=== PATIENT | male | born 1980 | race Caucasian/White ===

== ENCOUNTER 2019-07-22 11:46 | Emergency (ER) | payer OTHER ==
[2019-07-22 12:00] VITALS: TEMP 98.9
[2019-07-22] MEDS ORDERED: SODIUM CHLORIDE 0.9% (FLUSH) 10 ML SYG IV PRN (12:35)
[2019-07-22] MEDS ORDERED: SODIUM CHLORIDE 0.9% 1000ML 1,000 ML IVS ONE (12:36)
--- NOTE | 2019-07-22 12:36 | ED.PDOC ---
History of Present Illness - General Chief Complaint: General Stated Complaint: NEEDS MEDICALLY CLEARED PER POLICE Time Seen by Provider: 07/22/19 12:35 Source: patient, police - History of Present Illness Initial Comments: 38 yo male with PMH of substance abuse who is bib law enforcement for cc of need for medical clearance for psychiatric evaluation. Pt provides little history. Reports he was arrested this morning and does not know why. States the police tackled him to the ground and handcuffed him. Reports new L shoulder pain after being tackled, located to lateral shoulder, worse with palpation and movement, throbbing, moderate severity, nothing taken for relief. He denies any thoughts or attempts of harming himself or others. PD at bedside reports a warrant was issued for his arrest because family had reported him to make statements that he wanted to jump off a bridge. He has also been making delusional statements and saying he wants to his children. He has also been messaging a 15 year old girl on Facebook. Pt declined to comment on these issues. Denies any other pain or acute sx's. Reports drinking beer this morning but declined to say how much. Denies any other drug usage. Allergies/Adverse Reactions: Allergies NO KNOWN ALLERGY Allergy (Verified 07/22/19 12:00) Home Medications: Ambulatory Orders NK 07/22/19 Review of Systems - Review of Systems Review of Systems: 07/22/19 13:39 as per HPI All other Systems: Reviewed and Negative Past Medical History (General) - Patient Medical History Hx Seizures: No Hx Asthma: No Hx Hypertension: No Hx Diabetes: No Hx Cancer: No Hx Hepatitis C: No Surgical History: no surgical history - Vaccination History Hx Tetanus, Diphtheria Vaccination: No - UNKNOWN Hx Influenza Vaccination: No Hx Pneumococcal Vaccination: No Immunizations Up to Date: No - Social History Hx Tobacco Use: No Hx Alcohol Use: Yes - REGULAR BASIS Hx Substance Use: No Hx Substance Use Treatment: No Hx Depression: No Feels Threatened In Home Enviroment: No Feels Threatened In a Relationship: No - Female History Patient is a Female of Child Bearing Age (10 -59 yrs old): No Family Medical History - Family History Mother Family History: Unknown Living Status: Unknown Physical Exam - Physical Exam General Appearance: Alert, No apparent distress Eye Exam: bilateral other - mild periorbital bruising to left eye Ears, Nose, Throat: hearing grossly normal, normal ENT inspection, normal pharynx Neck: non-tender, full range of motion, supple, normal inspection Respiratory: lungs clear, normal breath sounds, no respiratory distress, no accessory muscle use Cardiovascular/Chest: normal peripheral pulses, no edema, no gallop, no JVD, no murmur, tachycardia Peripheral Pulses: radial,right: 2+, radial,left: 2+ Gastrointestinal/Abdominal: non tender, soft Back Exam: normal inspection, no CVA tenderness, no vertebral tenderness Extremity: other - moderate L lateral shoulder ttp w/o bruising/swelling/deformity, moderate reduced ROM bonny abduction due to pain, strength & sensation normal throughout 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 Consider also frx vs dislocation. -pt declines any XR imaging of L shoulder 07/22/19 15:16 -Labs reveal positive cannabinoids but no other drugs detected on UDS. Pt has slightly elevated blood alcohol level. His CPK is mildly elevated to 498 - likely mild dehydration from alcohol usage and struggling with police this morning. He refused any IV placement or fluids in the ED. Advised PO rehydration. Remainder of labwork unremarkable. His vitals have remained stable, tachycardia resolved. -Discussed all findings with pt. Discussed dx of acute left shoulder pain - contusion vs strain/sprain vs rotator cuff injury. Advised ROM exercises, OTC analgesics, outpatient f/u. Also advised cessation of drug use. -dc to police custody - to be brought to behavioral health facility for evaluation per police, return warnings discussed Tab Nelson MD Billing #[id number] 07/22/19 12:35 IV Care:Saline Lock per [employer] QSHIFT Telemetry .ONCE 07/22/19 12:45 EKG STAT 07/23/19 09:00 Pulse Ox Daily Laboratory Results - last 24 hr 07/22/19 07/22/19 07/22/19 12:47 12:47 12:47 WBC 10.8 RBC 4.93 Hgb 16.8 Hct 47.2 MCV 95.8 H MCH 34.1 H MCHC 35.6 RDW 12.8 Plt Count 241 MPV 7.5 Absolute Neuts (auto) 9.40 H Absolute Lymphs (auto) 0.70 L Absolute Monos (auto) 0.60 Absolute Eos (auto) 0.00 Absolute Basos (auto) 0.00 Neutrophils % 86.7 H Lymphocytes % 6.9 L Monocytes % 5.8 Eosinophils % 0.4 L Basophils % 0.2 Sodium 137 Potassium 3.7 Chloride 102 Carbon Dioxide 20 L Anion Gap 18.7 H BUN 8 Creatinine 0.88 BUN/Creatinine Ratio 9.1 L Random Glucose 114 H Serum Osmolality 273.0 L Calcium 9.3 Total Bilirubin 0.7 AST 31 ALT 32 Alkaline Phosphatase 71 Creatine Kinase Troponin I Serum Total Protein 7.6 Albumin 4.5 Globulin 3.1 Albumin/Globulin Ratio 1.5 Urine Color Urine Appearance Urine pH Ur Specific Leon Urine Protein Urine Glucose (UA) Urine Ketones Urine Blood Urine Nitrite Urine Bilirubin Urine Urobilinogen Ur Leukocyte Esterase Urine RBC Urine WBC Ur Epithelial Cells Urine Bacteria Salicylates < 4.0 Urine Opiates Screen Acetaminophen < 10.0 L Urine Barbiturates Ur Phencyclidine Scrn U Amphetamin/Meth Scrn U Benzodiazepines Scrn U Cocaine Metab Screen U Cannabinoids Screen Ethyl Alcohol 94.60 H* 07/22/19 07/22/19 07/22/19 12:47 12:47 12:58 WBC RBC Hgb Hct MCV MCH MCHC RDW Plt Count MPV Absolute Neuts (auto) Absolute Lymphs (auto) Absolute Monos (auto) Absolute Eos (auto) Absolute Basos (auto) Neutrophils % Lymphocytes % Monocytes % Eosinophils % Basophils % Sodium Potassium Chloride Carbon Dioxide Anion Gap BUN Creatinine BUN/Creatinine Ratio Random Glucose Serum Osmolality Calcium Total Bilirubin AST ALT Alkaline Phosphatase Creatine Kinase 498 H* Troponin I < 0.02 Serum Total Protein Albumin Globulin Albumin/Globulin Ratio Urine Color Urine Appearance Urine pH Ur Specific Leon Urine Protein Urine Glucose (UA) Urine Ketones Urine Blood Urine Nitrite Urine Bilirubin Urine Urobilinogen Ur Leukocyte Esterase Urine RBC Urine WBC Ur Epithelial Cells Urine Bacteria Salicylates Urine Opiates Screen Negative Acetaminophen Urine Barbiturates Negative Ur Phencyclidine Scrn Negative U Amphetamin/Meth Scrn Negative U Benzodiazepines Scrn Negative U Cocaine Metab Screen Negative U Cannabinoids Screen Positive H Ethyl Alcohol 07/22/19 12:58 WBC RBC Hgb Hct MCV MCH MCHC RDW Plt Count MPV Absolute Neuts (auto) Absolute Lymphs (auto) Absolute Monos (auto) Absolute Eos (auto) Absolute Basos (auto) Neutrophils % Lymphocytes % Monocytes % Eosinophils % Basophils % Sodium Potassium Chloride Carbon Dioxide Anion Gap BUN Creatinine BUN/Creatinine Ratio Random Glucose Serum Osmolality Calcium Total Bilirubin AST ALT Alkaline Phosphatase Creatine Kinase Troponin I Serum Total Protein Albumin Globulin Albumin/Globulin Ratio Urine Color Yellow Urine Appearance Clear Urine pH 5.0 Ur Specific Leon <= 1.005 Urine Protein Negative Urine Glucose (UA) Negative Urine Ketones Negative Urine Blood Trace-intact H Urine Nitrite Negative Urine Bilirubin Negative Urine Urobilinogen 0.2 Ur Leukocyte Esterase Negative Urine RBC 0 Urine WBC 0 Ur Epithelial Cells 0 Urine Bacteria 0 Salicylates Urine Opiates Screen Acetaminophen Urine Barbiturates Ur Phencyclidine Scrn U Amphetamin/Meth Scrn U Benzodiazepines Scrn U Cocaine Metab Screen U Cannabinoids Screen Ethyl Alcohol - EKG/XRAY/CT EKG: Sinus, Tachy - sinus tach, HR 110, no ST elevations or q waves, axis & intervals normal, no prior EKG for comparison XRAY: chest - no acute processes per my read Departure - Departure Clinical Impression: Mild dehydration, Marijuana abuse Alcohol intoxication Qualifiers: Complication of substance-induced condition: uncomplicated Qualified Code(s): F10.920 - Alcohol use, unspecified with intoxication, uncomplicated Shoulder pain, left Qualifiers: Chronicity: acute Qualified Code(s): M25.512 - Pain in left shoulder Time of Disposition: 14:57 Disposition: Shelter Condition: Fair Departure Forms: ED Discharge - Pt. Copy, Patient Portal Self Enrollment Instructions: Shoulder Sprain (DC), Contusion (DC) Home Medications: Ambulatory Orders NK 07/22/19 Additional Instructions: Remain well-hydrated. I strongly urge you quit using alcohol and illicit substances. Follow up closely with your primary care doctor and other medical providers. Return if worsening or if any other concerning symptoms develop. Take Tylenol 650 mg every 6 hours and/or ibuprofen 600 mg every 6 hours as needed for pain. Continue range of motion exercises of left shoulder each day to prevent frozen shoulder. If your shoulder pain persists, you may need further outpatient evaluation of the shoulder and/or possible referral to physical therapy as outpatient for rehab.
--- NOTE | 2019-07-22 13:46 | RAD ---
EXAM DESCRIPTION: Chest,1 View CLINICAL HISTORY: 38 years Male, medical clearance for psych evaluation COMPARISON: None. TECHNIQUE: AP portable chest. FINDINGS: Heart size is normal with normal pulmonary vascularity. No consolidating infiltrate. No pulmonary mass or worrisome nodule. No pneumothorax or pleural effusion. Bones are unremarkable. IMPRESSION: No acute process is identified in the chest. Electronically signed by: Rajendra Beebe MD 07/22/2019 1:44 PM ART PSYCHOTHERAPIST OR THERAPIST
[2019-07-22 15:09] VITALS: BP 153/92; O2SAT 97
== END 2019-07-22 15:20 ==
LOC: ER 11:46
DX: E86.0 Dehydration (principal); F12.10 Cannabis abuse, uncomplicated; F10.120 Alcohol abuse with intoxication, uncomplicated; M25.512 Pain in left shoulder; R00.0 Tachycardia, unspecified